=== PATIENT | male | born 1965 | race Caucasian/White ===

== ENCOUNTER → 2020-08-09 | Outpatient (CLI) | payer BC | LOC: M LABSMTC 13:20 | PROVIDERS: ATTEND Surgery | DX: Z11.52 Encounter for screening for COVID-19 (principal) ==

== ENCOUNTER → 2023-10-22 | Outpatient (CLI) | payer BC | LOC: M RAD 08:26 | PROVIDERS: ATTEND Physician Assistant Surgical | DX: R74.01 Elevation of levels of liver transaminase levels (principal) ==